=== PATIENT | male | born 1975 | race Caucasian/White ===

== ENCOUNTER 2016-05-14 23:46 | Emergency (ER) | payer OTHER ==
[~2016-05-14] VITALS: Ht 175.3 cm; Wt 99.6 kg
[~2016-05-14 23:46] MED LIST: AUGMENTIN875 MG PO; NAPROXEN500 MG PO
[2016-05-15 01:47] LABS: HEMATOCRIT 41.8 % (38.0-50.0); MCHC 33.5 G/DL (30.0-36.0); MCV 92.5 FL (86-99); MEAN PLAT.VOLUME 10.3 uM^3 (9.0-12.4); PLATELET COUNT 197 K/uL (156-360); RBC DIS.WIDTH-CV 13.4 % (11.8-14.6); RED BLOOD COUNT 4.52 M/uL (4.00-5.50); WHITE BLOOD COUNT 10.4 K/uL (4.1-10.2)
[2016-05-15 02:09] LABS: CHLORIDE 106 mEq/L (99-109); POTASSIUM 3.7 mEq/L (3.7-5.4); SODIUM 144 mEq/L (136-147)
[2016-05-15 02:12] LABS: GLUCOSE 110 mg/dL (70-99)
[2016-05-15 02:13] LABS: ANION GAP 10 MEQ/L (2-14); TOTAL BILIRUBIN 0.4 mg/dL (0.0-1.0)
[2016-05-15 02:15] LABS: GFR ESTIMATE (CALCULATED) > 59 mL/min/; SERUM ETHYL ALCOHOL < 10 mg/dL
[2016-05-15 02:16] LABS: ALKALINE PHOSPHATASE 93 IU/L (3-129)
[2016-05-15 02:17] LABS: UREA NITROGEN (BUN) 21 mg/dL (9-23)
[2016-05-15 02:19] LABS: SALICYLATE < 5.0 MG/DL (15-30)
[2016-05-15 04:22] VITALS: BP 143/95
== END 2016-05-15 04:59 | disposition home or self-care (01) ==
LOC: EME 23:46
PROVIDERS: Emergency Medicine
DX: Z04.6 Encounter for general psychiatric examination, requested by authority (principal); F19.20 Other psychoactive substance dependence, uncomplicated; F32.9 Major depressive disorder, single episode, unspecified; F43.9 Reaction to severe stress, unspecified; F90.2 Attention-deficit hyperactivity disorder, combined type; F17.200 Nicotine dependence, unspecified, uncomplicated
CPT/HCPCS: 80053; 81003; 85027; 90837; 93005; 99281; 99285; G0480

== ENCOUNTER 2016-05-30 10:47 | Emergency (ER) | payer OTHER ==
[~2016-05-30] VITALS: Ht 175.3 cm; Wt 104.5 kg
[2016-05-30] MEDS ORDERED: MOTRIN800 MG PO (14:33)
[2016-05-30] MEDS ORDERED: FLEXERIL10 MG PO (14:33)
[2016-05-30 15:03] VITALS: BP 135/96
== END 2016-05-30 15:08 | disposition home or self-care (01) ==
LOC: EME → EDBD 10:47 → EME 10:47
DX: M54.5 Low back pain (principal); M79.604 Pain in right leg; M79.605 Pain in left leg; F17.200 Nicotine dependence, unspecified, uncomplicated
CPT/HCPCS: 72110; 99281; 99284